=== PATIENT | female | born 1980 | race Caucasian/White ===

== ENCOUNTER 2021-11-03 13:20 | Inpatient (IN) ==
[2021-11-03] MEDS ORDERED: IOPAMIDOL 100 ML BOTTLE IV ONE (13:21)
[2021-11-03 13:43] LABS: POC Calcium, Ionized 1.06 (1.16-1.32); POC Creatinine 0.6 (0.6-1.2); POC Potassium 3.5 (3.3-5.1)
[2021-11-03] MEDS ORDERED: HYDROmorphone 1 MG/ML SYRINGE IV ONE ×2 (14:10→16:00)
[2021-11-03] MEDS ORDERED: 0.9 % SODIUM CHLORIDE 1,000 ML IV ONE ×2 (14:14→17:21)
[2021-11-03 14:50] LABS: Basophils # (Auto) 0.03 K/mcL (0.00-0.30); Basophils % (Auto) 0.4 % (0.0-2.0); Eosinophils # (Auto) 0.03 K/mcL (0.00-0.70); Eosinophils % (Auto) 0.4 % (0.0-7.0); Hematocrit 43.3 % (34.1-44.9); Hemoglobin 14.7 g/dL (11.2-15.7); Lymphocytes # (Auto) 1.62 K/mcL (1.50-4.80); Lymphocytes % (Auto) 24.1 % (15.5-49.0); Mean Cell Volume 95.2 fL (80.0-100.0); Mean Corpuscular HGB Conc 33.9 g/dL (31.0-36.0); Mean Platelet Volume 10.9 fL (7.4-10.4); Monocytes # (Auto) 0.66 K/mcL (0.10-0.90); Monocytes % (Auto) 9.8 % (1.0-12.0); Platelet Count 248 K/mcL (140-440); RBC 4.55 M/mcL (3.59-5.38); Red Cell Distribution Width 13.1 % (11.5-14.5); WBC 6.7 K/mcL (4.5-11.0)
[2021-11-03 15:11] LABS: ALT/SGPT 144 U/L (<40); AST/SGOT 231 U/L (<32); Albumin 4.2 gm/dL (3.2-5.2); Alkaline Phosphatase 157 U/L (39-117); Amylase 155 U/L (28-100); Bilirubin,Direct 0.4 mg/dL (<0.3); Globulin 2.7 gm/dL (2.2-3.7)
--- NOTE | 2021-11-03 15:18 | Cat Scan Report ---
CLINICAL INFORMATION: Abdominal pain COMPARISON: None. TECHNIQUE: Following enteric contrast, 80 cc of Isovue-370 were injected intravenously, and 60 seconds later, 0.625 mm helical slices were obtained from the mid heart through the subtrochanteric regions. Following reconstruction, 2.5 mm sagittal, coronal and axial reformatted images were processed and reviewed at bone, lung and soft tissue windows. Five minutes later, 0.625 mm helical slices were obtained from the mid heart through the kidneys and viewed at soft tissue windows.The exam was performed using radiation dose optimization techniques including, but not limited to, automated exposure control, adjustment of the mA and/or kV according to patient size and use of iterative reconstruction technique. FINDINGS: The lung bases are clear. No effusions. The visualized heart is grossly normal. Abdominal images show mild hepatomegaly with diffuse fatty change within the liver. No focal hepatic lesions. The gallbladder and bile ducts are normal. The pancreas is mildly enlarged with inhomogeneous attenuation and moderate fluid in the peripancreatic fat planes compatible with acute interstitial pancreatitis. There is no necrosis, abscess stone or other complication. Both kidneys, adrenal glands, spleen and aorta, including aortic branches are normal in size, configuration and attenuation without focal lesion. Pelvic images show normal urinary bladder. Anteflexed uterus is normal in size: 7.5 x 3.5 cm. Both lobes are normal. Scattered sigmoid diverticuli noted. No evidence of diverticulitis. The remaining colon, inferior pericecal appendix, small bowel and stomach are normal. Bone windows show no osseous abnormality. IMPRESSION: Acute interstitial pancreatitis. No necrosis or other complication. Mild hepatomegaly with diffuse fatty change within the liver. Please correlate with LFTs Interpreted and Authenticated by: Feliberto Godoy 11/03/21
[2021-11-03 15:29] LABS: Appearance,Urine Clear (Clear); Bilirubin,Urine Negative (Negative); Color,Urine Yellow; Culture Indicated,Urine No; Glucose,Urine (UA) Negative (Negative); Ketones,Urine Negative (Negative); Leukocyte Esterase,Urine Negative /uL (Negative); Mucus,Urine MOD /hpf; Nitrate,Urine Negative (Negative); Protein,Urine Negative (Negative); Specific Gravity,Urine >= 1.030 (1.000-1.035); Urine Blood Negative ery/mcL (Negative); Urine Hyaline Cast 70 /lph (0-2); Urine RBC 0 /hpf (0-3); Urine Squamous Epithelial Cell < 1 /hpf (0-4); Urine WBC 0 /hpf (0-4); Urobilinogen,Urine Normal
--- NOTE | 2021-11-03 15:47 | Emergency Department Note ---
Abdominal Pain HPI General Chief Complaint: Abdominal Pain Stated Complaint: abd. pain Time Seen by Provider: 11/03/21 14:09 Source: patient Mode of arrival: ambulatory History of Present Illness HPI Narrative: 41-year-old female patient presents with acute onset of abdominal pain x2 hours with some nausea, but no vomiting. She was at work at the time. It is mostly located to the left upper quadrant and radiates to the left back. It does not radiate to the groin. She denies dysuria or hematuria. Denies abnormal stools or melena or hematochezia. She has no history of diverticulitis. Previous abdominal surgeries include a bilateral tubal ligation and section. Patient does not have a history of pancreatitis. She does drink 3-4 beers per day. No illicit drug use. Smokes 4 to 6 cigarettes/day. Last alcoholic pancho erage was last night. She endorses a history of mild alcohol withdrawal. Related Data Home Medications Medication Instructions Recorded Confirmed ascorbic acid (vitamin C) 500 mg 500 mg PO QDAY 11/03/21 11/03/21 tablet cetirizine 10 mg tablet (All Day 10 mg PO QDAY 11/03/21 11/03/21 Allergy (cetirizine)) guaifenesin 600 mg tablet, 600 mg PO QDAY 11/03/21 11/03/21 extended release 12 hr (Mucinex) mecobalamin (vitamin B12) 1,000 1,000 mcg PO QDAY 11/03/21 11/03/21 mcg chewable tablet omeprazole 20 mg tablet,delayed 20 mg PO QDAY 11/03/21 11/03/21 release Allergies Allergy/AdvReac Type Severity Reaction Status Date / Time No Known Drug Allergies Allergy Unverified 11/03/21 13:23 Review of Systems ROS ROS Narrative: Narrative: All systems ED: reviewed and negative except as stated. [facility] Narrative Patient History Narrative: Narrative: Medical/Surgical/Family History All Active Problems (Updated 11/03/21 @ 17:22 by Samia Bowen PA-C) Acute pancreatitis (Acute) Social History Smoking Status: Current every day smoker Exam Narrative Narrative: Nondistended general: AOx3, curled up in the position, nontoxic appearing. Pleasant and conversant. HEENT: PERRL, EOMI, normocephalic. Moist mucous membranes. Normal facies and normal dentition. Respiratory: Lungs clear to auscultation bilaterally. No respiratory distress. Unlabored breathing. Heart: Regular rate and rhythm, no murmurs/clicks/rubs. Abdomen: Left upper quadrant tenderness,, negative rebound Goddard sign or McBurney sign. No organomegaly. Extremities: Warm and well perfused. No edema. DP 2+ bilaterally. No venous stasis. Neuro: No focal deficits. Cranial nerves II-XII grossly normal. Skin: Warm dry, no rashes or lesions, no cyanosis. Psych: Normal mood and affect Heme/Lymph: No abnormal bruising Course Course Course Narrative: 41-year-old female presents for cute onsetLeft upper quadrant pain Reevaluation(s) Reevaluation #1: Obtain basic labs, lipase and amylase Establish IV and give IV analgesics and fluids Obtain CT of the abdomen pelvis with and without contrast to rule out pancreatitis, stone, colitis, other Reevaluation #2: LFTs are significantly elevated amylase and lipase both elevated. CT scan shows evidence of interstitial pancreatitis. The patient is received 2 doses of 1 mg of IV Dilaudid continues to be significantly painful. We will hang another liter of fluid and admit for pain control. Have reached out to hospitalist for admission and waiting callback. Vital Signs Vital signs: Vital Signs Temperature 97.8 F 11/03/21 13:21 Pulse Rate 51 L 11/03/21 13:21 Respiratory Rate 16 11/03/21 13:21 Blood Pressure 177/96 11/03/21 13:21 Pulse Oximetry (%) 98 11/03/21 13:21 Oxygen Delivery Method 11/03/21 13:21 Temperature 97.8 F 11/03/21 13:21 Pulse Rate 80 11/03/21 17:22 Respiratory Rate 16 11/03/21 13:21 Blood Pressure 172/105 11/03/21 16:16 Pulse Oximetry (%) 97 11/03/21 17:22 Oxygen Delivery Method 11/03/21 13:21 [facility] MDM Narrative Medical decision making narrative: Acute pancreatitis I called the hospitalist for admission. Plan will be for admit for pain control and IV fluids. Lab Data Result diagrams: 11/03/21 13:35 Labs: Lab Results 11/03/21 11/03/21 11/03/21 Range/Units 13:35 13:35 13:38 WBC 6.7 (4.5-11.0) K/mcL RBC 4.55 (3.59-5.38) M/mcL Hgb 14.7 (11.2-15.7) g/dL Hct 43.3 (34.1-44.9) % POC Hct 46.0 (36-48) MCV 95.2 (80.0-100.0) fL MCH 32.3 (26.0-34.0) pg MCHC 33.9 (31.0-36.0) g/dL RDW 13.1 (11.5-14.5) % Plt Count 248 (140-440) K/mcL MPV 10.9 H (7.4-10.4) fL Immature Gran % (Auto) 0.3 (0.0-0.5) % Neut % (Auto) 65.0 (38.0-78.0) % Lymph % (Auto) 24.1 (15.5-49.0) % [place] % (Auto) 9.8 (1.0-12.0) % Eos % (Auto) 0.4 (0.0-7.0) % Baso % (Auto) 0.4 (0.0-2.0) % Lymph # (Auto) 1.62 (1.50-4.80) K/mcL [place] # (Auto) 0.66 (0.10-0.90) K/mcL Eos # (Auto) 0.03 (0.00-0.70) K/mcL Baso # (Auto) 0.03 (0.00-0.30) K/mcL Immature Gran # 0.02 (0.00-0.05) K/mcl Absolute Neutrophils 4.36 (1.80-8.00) K/mcL POC Sodium 134 (133-145) POC Potassium 3.5 (3.3-5.1) POC Chloride 96 (96-108) POC Total CO2 27.0 (22-30) POC BUN 10 (6-20) POC Creatinine 0.6 (0.6-1.2) POC Glucose 160 H (70-105) POC WB Ioniz Calcium 1.06 L (1.16-1.32) Total Bilirubin 1.0 (0.1-1.0) mg/dL Direct Bilirubin 0.4 H (<0.3) mg/dL AST 231 H (<32) U/L ALT 144 H (<40) U/L Alkaline Phosphatase 157 H (39-117) U/L Total Protein 6.9 (5.9-8.4) gm/dL Albumin 4.2 (3.2-5.2) gm/dL Globulin 2.7 (2.2-3.7) gm/dL Amylase 155 H (28-100) U/L Lipase 596 H (7-60) U/L Urine Color Urine Appearance (Clear) Urine pH (5.0-9.0) Ur Specific [place] (1.000-1.035) Urine Protein (Negative) mg/dL Urine Glucose (UA) (Negative) mg/dL Urine Ketones (Negative) mg/dL Urine Occult Blood (Negative) elsa/mcL Urine Nitrate (Negative) Urine Bilirubin (Negative) mg/dL Urine Urobilinogen mg/dL Ur Leukocyte Esterase (Negative) /uL Urine RBC (0-3) /hpf Urine WBC (0-4) /hpf Ur Squamous Epith Cells (0-4) /hpf Urine Bacteria (0) /hpf Hyaline Casts (0-2) /lph Urine Mucus (None) /hpf Ur Culture Indicated? 11/03/21 Range/Units 13:38 WBC (4.5-11.0) K/mcL RBC (3.59-5.38) M/mcL Hgb (11.2-15.7) g/dL Hct (34.1-44.9) % POC Hct (36-48) MCV (80.0-100.0) fL MCH (26.0-34.0) pg MCHC (31.0-36.0) g/dL RDW (11.5-14.5) % Plt Count (140-440) K/mcL MPV (7.4-10.4) fL Immature Gran % (Auto) (0.0-0.5) % Neut % (Auto) (38.0-78.0) % Lymph % (Auto) (15.5-49.0) % [place] % (Auto) (1.0-12.0) % Eos % (Auto) (0.0-7.0) % Baso % (Auto) (0.0-2.0) % Lymph # (Auto) (1.50-4.80) K/mcL [place] # (Auto) (0.10-0.90) K/mcL Eos # (Auto) (0.00-0.70) K/mcL Baso # (Auto) (0.00-0.30) K/mcL Immature Gran # (0.00-0.05) K/mcl Absolute Neutrophils (1.80-8.00) K/mcL POC Sodium (133-145) POC Potassium (3.3-5.1) POC Chloride (96-108) POC Total CO2 (22-30) POC BUN (6-20) POC Creatinine (0.6-1.2) POC Glucose (70-105) POC WB Ioniz Calcium (1.16-1.32) Total Bilirubin (0.1-1.0) mg/dL Direct Bilirubin (<0.3) mg/dL AST (<32) U/L ALT (<40) U/L Alkaline Phosphatase (39-117) U/L Total Protein (5.9-8.4) gm/dL Albumin (3.2-5.2) gm/dL Globulin (2.2-3.7) gm/dL Amylase (28-100) U/L Lipase (7-60) U/L Urine Color Yellow Urine Appearance Clear (Clear) Urine pH 5.0 (5.0-9.0) Ur Specific [place] >= 1.030 (1.000-1.035) Urine Protein Negative (Negative) mg/dL Urine Glucose (UA) Negative (Negative) mg/dL Urine Ketones Negative (Negative) mg/dL Urine Occult Blood Negative (Negative) elsa/mcL Urine Nitrate Negative (Negative) Urine Bilirubin Negative (Negative) mg/dL Urine Urobilinogen Normal mg/dL Ur Leukocyte Esterase Negative (Negative) /uL Urine RBC 0 (0-3) /hpf Urine WBC 0 (0-4) /hpf Ur Squamous Epith Cells < 1 (0-4) /hpf Urine Bacteria None (0) /hpf Hyaline Casts 70 H (0-2) /lph Urine Mucus Mod A (None) /hpf Ur Culture Indicated? No ED POC Tests ED POC Tests: HCG POC Results Negative Discharge Plan Patient/Caregiver Discharge Instructions Pt seen by [employer]/PA only: Yes Clinical Impression: Acute pancreatitis Instructions: Pancreatitis (ED) Patient Disposition: Xfer As Inpt ([facility]) Prescriptions: No Action cetirizine [All Day Allergy (cetirizine)] 10 mg Tablet 10 mg PO QDAY ascorbic acid (vitamin C) 500 mg Tablet 500 mg PO QDAY omeprazole 20 mg Tablet,Delayed Release (Dr/Ec) 20 mg PO QDAY guaifenesin [Mucinex] 600 mg Tablet Extended Release 12hr 600 mg PO QDAY mecobalamin (vitamin B12) 1,000 mcg Tablet,Chewable 1,000 mcg PO QDAY
--- OUTSIDE RECORDS SUMMARY | 2021-11-03 18:03 | External Medical Summary ---
:1980 Author Care Team Providers Name Role Phone Dental Only Primary Care Provider Unavailable Allergies None recorded. Medications Name Status Start Date Stop Date cephalexin 500 mg capsule Active Not av ailable TAKE ONE CAPSULE BY MOUTH TWICE DAILY FOR 7 DAYS Problems None recorded. Procedures None recorded. Results Lab Results None recorded. Past Encounters 01/20/2021 Ajith Castañeda, DDS: [address] [place] [address], Ph. 01/15/2021 Toothache Varun Treviño, DDS: [address] [place] [address], Ph. Social History Tobacco Smoking Status Heavy Tobacco Smoker (1/2 pack per da y) Vaccine List None recorded. Plan of Care Reminders Provider Appointments None recorded. Lab None recorded. Referral None recorded. Procedures None recorded. Surgeries None recorded. Imaging None recorded. Vitals 01/20/2021 02:45PM Extraction Blood Pressure 114/82 mm[Hg] 01/15/2021 02:15PM Dental Exam/Limited Blood Pressure 128/83 mm[Hg]
[2021-11-03] MEDS ORDERED: ONDANSETRON 4 MG/2 ML VIAL IV PRN (18:19)
[2021-11-03] MEDS ORDERED: ACETAMINOPHEN 325 MG TABLET PO PRN (18:19)
[2021-11-03] MEDS ORDERED: cloNIDine HCL 0.1 MG TABLET PO PRN (18:25)
--- NOTE | 2021-11-03 18:30 | Internal Med History&Physical ---
HPI History of Present Illness Patient information: Note initiated : 11/03/21 at 6:29 pm Service Date, if different from initiated Date: [] Patient: Vee Blancas a 41 y/o F admitted on 11/03/21 for abd. pain. Chief Complaint: [Abdominal pain] History of present illness: Ms. Blancas is a 41 year old F with a history of alcohol use who presents the ED with abrupt onset of abdominal pain this afternoon. Patient was at work when she had onset of left upper abdominal pain which radiated to the back. It tended to wax and wane. Eventually someone from work brought her to the hospital. She had some associated indigestion, felt hot and sweaty but did not have a fever. She had no associated nausea or vomiting. She had little bit of shortness of breath, but that is chronic which she attributes to her cigarette smoking. She has a chronic cough which is unchanged. She reports mild similar symptoms in the past once or twice. No history of biliary disease, she still has her gallbladder. She drinks about 6 x 16 ounce beers on week nights when working, tends to drink throughout the day when she is not working. In the emergency department, evaluation revealed elevated lipase, elevated transaminases and alkaline phosphatase, CT imaging consistent with pancreatitis. In spite of several doses of pain medications, her pain was difficult to control in the ED and she is being admitted for further treatment of pancreatitis. Pertinent family history: No family history of pancreatitis Pertinent social history: Alcohol consumption as above, smokes about 1 and half packs per day Review of Systems All systems: reviewed and no additional remarkable complaints except as stated PFSH PFSH All Active Problems (Updated 11/03/21 @ 20:19 by Latricia Kohler MD) Allergic rhinitis (Acute) Gastroesophageal reflux disease (Acute) Acute pancreatitis (Acute) Medical History (Updated 11/03/21 @ 20:19 by Latricia Kohler MD) Allergic rhinitis Gastroesophageal reflux disease Social History smoking status: Current every day smoker MEDS/ALLERGIES Home Medications and Allergies Home Medications Medication Instructions Recorded Confirmed Type ascorbic acid (vitamin C) 500 mg 500 mg PO QDAY 11/03/21 11/03/21 History tablet cetirizine 10 mg tablet (All Day 10 mg PO QDAY 11/03/21 11/03/21 History Allergy (cetirizine)) guaifenesin 600 mg tablet, 600 mg PO QDAY 11/03/21 11/03/21 History extended release 12 hr (Mucinex) mecobalamin (vitamin B12) 1,000 1,000 mcg PO QDAY 11/03/21 11/03/21 History mcg chewable tablet omeprazole 20 mg tablet,delayed 20 mg PO QDAY 11/03/21 11/03/21 History release Allergies Allergy/AdvReac Type Severity Reaction Status Date / Time No Known Drug Allergies Allergy Unverified 11/03/21 13:23 EXAM Constitutional Vitals: Temp Pulse Resp BP Pulse Ox O2 Del Method 97.8 F 60 16 155/88 93 11/03/21 13:21 11/03/21 17:46 11/03/21 13:21 11/03/21 17:46 11/03/21 17:46 11/03/21 13:21 GENERAL: Alert, oriented, in mild distress. Cooperative, appears stated age. HEENT: Atraumatic. Pupils equal at 3 mm, conjunctiva clear, no scleral icterus. Hearing grossly intact. Oropharynx with moist mucous membranes, no lip or gum lesions, no pharyngeal erythema or exudate. Tongue midline, palate rises symmetrically. NECK: Supple without meningismus, no thyromegaly RESPIRATORY: Breath sounds clear bilaterally without wheezes or rhonchi. Respiratory effort is unlabored. CARDIOVASCULAR: Regular rate and rhythm, no murmur gallop or rub. No peripheral edema. Carotid pulses 2+ without bruit. GI: Abdomen soft, mild to moderate epigastric and left upper quadrant tenderness without guarding or rebound. Bowel sounds are present. MUSCULOSKELETAL: No joint erythema or swelling, normal range of motion in all extremities. SKIN: Intact, warm, dry. Skin turgor normal. NEUROLOGIC: Cranial nerves II through XII grossly intact. Muscle mass normal. Strength 5/5 in the upper and lower extremities. Sensation intact to light touch bilaterally. PSYCHIATRIC: Alert, oriented x3, mood and affect congruent to situation, normal insight. DATA Data Completed and Pending Labs: Labs from last 24 hours 11/03/21 11/03/21 11/03/21 13:38 13:38 13:35 WBC RBC Hgb Hct POC Hct 46.0 MCV MCH MCHC RDW Plt Count MPV Immature Gran % (Auto) Neut % (Auto) Lymph % (Auto) [place] % (Auto) Eos % (Auto) Baso % (Auto) Lymph # (Auto) [place] # (Auto) Eos # (Auto) Baso # (Auto) Immature Gran # Absolute Neutrophils POC Sodium 134 POC Potassium 3.5 POC Chloride 96 POC Total CO2 27.0 POC BUN 10 POC Creatinine 0.6 POC Glucose 160 H POC WB Ioniz Calcium 1.06 L Total Bilirubin 1.0 Direct Bilirubin 0.4 H AST 231 H ALT 144 H Alkaline Phosphatase 157 H Total Protein 6.9 Albumin 4.2 Globulin 2.7 Amylase 155 H Lipase 596 H Urine Color Yellow Urine Appearance Clear Urine pH 5.0 Ur Specific [place] >= 1.030 Urine Protein Negative Urine Glucose (UA) Negative Urine Ketones Negative Urine Occult Blood Negative Urine Nitrate Negative Urine Bilirubin Negative Urine Urobilinogen Normal Ur Leukocyte Esterase Negative Urine RBC 0 Urine WBC 0 Ur Squamous Epith Cells < 1 Urine Bacteria None Hyaline Casts 70 H Urine Mucus Mod A Ur Culture Indicated? No 11/03/21 13:35 WBC 6.7 RBC 4.55 Hgb 14.7 Hct 43.3 POC Hct MCV 95.2 MCH 32.3 MCHC 33.9 RDW 13.1 Plt Count 248 MPV 10.9 H Immature Gran % (Auto) 0.3 Neut % (Auto) 65.0 Lymph % (Auto) 24.1 [place] % (Auto) 9.8 Eos % (Auto) 0.4 Baso % (Auto) 0.4 Lymph # (Auto) 1.62 [place] # (Auto) 0.66 Eos # (Auto) 0.03 Baso # (Auto) 0.03 Immature Gran # 0.02 Absolute Neutrophils 4.36 POC Sodium POC Potassium POC Chloride POC Total CO2 POC BUN POC Creatinine POC Glucose POC WB Ioniz Calcium Total Bilirubin Direct Bilirubin AST ALT Alkaline Phosphatase Total Protein Albumin Globulin Amylase Lipase Urine Color Urine Appearance Urine pH Ur Specific [place] Urine Protein Urine Glucose (UA) Urine Ketones Urine Occult Blood Urine Nitrate Urine Bilirubin Urine Urobilinogen Ur Leukocyte Esterase Urine RBC Urine WBC Ur Squamous Epith Cells Urine Bacteria Hyaline Casts Urine Mucus Ur Culture Indicated? Impressions Impressions: CT abdomen/pelvis-personally reviewed IMPRESSION: Acute interstitial pancreatitis. No necrosis or other complication. Mild hepatomegaly with diffuse fatty change within the liver. Please correlate with LFTs A/P Narrative A/P Narrative: 41-year-old female with history of alcohol use, fatty liver on imaging presents with abdominal pain, found to have acute pancreatitis. Acute pancreatitis -Etiology likely alcohol related -Abnormal LFTs and alkaline phosphatase with normal total bilirubin, but no biliary abnormalities on CT imaging to suggest gallstone pancreatitis -With fatty liver, hypertriglyceridemia also possible Alcohol abuse -History of alcohol withdrawal in the past with described mild to moderate symptoms -No history of seizures or hallucinosis Abnormal liver enzymes -Elevated transaminases and alkaline phosphatase -Possibly related to alcohol use (less likely alcoholic hepatitis) -Underlying fatty liver, which could also be etiology -Normal bile ducts on CT imaging, will further evaluate for stone disease with ultrasound Tobacco use -Smokes 1.5 PPD -Nicotine patch while here GERD -Acid suppression Plan: -Inpatient admission -IV fluids, NS 200 mL/HR -N.p.o. except for sips and chips -Pain control, nausea control -Check triglycerides in morning -Follow liver enzymes -Limited abdominal ultrasound to evaluate for cholelithiasis -[facility] protocol -Nicotine patch Time Spent With Patient Time: Total time spent is greater than 50% in coordination of care (as documented) at patient's floor/unit and/or counseling patient:
[2021-11-03] MEDS: 0.9 % SODIUM CHLORIDE 10 ML SYRINGE IV SCH ×2 (19:00→21:58)
[2021-11-03] MEDS: NICOTINE 21 MG PATCH TOPICAL SCH (19:02)
[2021-11-03] MEDS: HYDROmorphone 1 MG/ML SYRINGE IV PRN ×2 (19:04→20:58)
[2021-11-03] MEDS: SENNOSIDES 1 TABLET PO SCH (19:04)
[2021-11-03] MEDS: 0.9 % SODIUM CHLORIDE 1,000 ML IV SCH (19:04)
[2021-11-03] MEDS: FAMOTIDINE/PF 20 MG/2 ML VIAL IV SCH (19:04)
[2021-11-03] MEDS: KETOROLAC 30 MG/ML VIAL IV PRN (19:05)
[2021-11-03] MEDS: LORazepam 2 MG/ML VIAL IV PRN (20:02)
[2021-11-04] MEDS: 0.9 % SODIUM CHLORIDE 1,000 ML IV SCH ×5 (00:37→22:15)
[2021-11-04] MEDS: KETOROLAC 30 MG/ML VIAL IV PRN ×3 (00:37→17:09)
[2021-11-04] MEDS: HYDROmorphone 1 MG/ML SYRINGE IV PRN ×5 (00:38→12:52)
[2021-11-04] MEDS: 0.9 % SODIUM CHLORIDE 10 ML SYRINGE IV SCH ×3 (06:10→21:30)
[2021-11-04 06:28] LABS: Basophils # (Auto) 0.02 K/mcL (0.00-0.30); Basophils % (Auto) 0.2 % (0.0-2.0); Eosinophils % (Auto) 1.2 % (0.0-7.0); Hematocrit 38.6 % (34.1-44.9); Hemoglobin 13.2 g/dL (11.2-15.7); Lymphocytes # (Auto) 1.57 K/mcL (1.50-4.80); Lymphocytes % (Auto) 19.3 % (15.5-49.0); Mean Cell Volume 94.4 fL (80.0-100.0); Mean Corpuscular HGB Conc 34.2 g/dL (31.0-36.0); Mean Platelet Volume 10.6 fL (7.4-10.4); Monocytes # (Auto) 0.66 K/mcL (0.10-0.90); Monocytes % (Auto) 8.1 % (1.0-12.0); Neutrophils % (Auto) 70.7 % (38.0-78.0); Platelet Count 211 K/mcL (140-440); RBC 4.09 M/mcL (3.59-5.38); WBC 8.1 K/mcL (4.5-11.0)
[2021-11-04] MEDS: LORazepam 2 MG/ML VIAL IV PRN ×3 (06:43→17:09)
[2021-11-04 07:05] LABS: ALT/SGPT 80 U/L (<40); AST/SGOT 90 U/L (<32); Albumin 3.1 gm/dL (3.2-5.2); Albumin/Globulin Ratio 1.3 (1.0-2.3); Alkaline Phosphatase 96 U/L (39-117); Bilirubin,Direct 0.5 mg/dL (<0.3); Bilirubin,Total 1.3 mg/dL (0.1-1.0); Blood Urea Nitrogen 4 mg/dL (6-20); Calcium 7.4 mg/dL (8.6-10.4); Carbon Dioxide 23 mmol/L (22-30); Chloride 104 mmol/L (96-108); Globulin 2.3 gm/dL (2.2-3.7); Glomerular Filtration Rate 129; Glucose 98 mg/dL (70-105); Lactate Dehydrogenase 165 U/L (135-225); Triglycerides 110 mg/dL (<150); Uric Acid 5.5 mg/dL (2.5-8.0)
[2021-11-04] MEDS: FAMOTIDINE/PF 20 MG/2 ML VIAL IV SCH ×2 (08:07→21:30)
[2021-11-04] MEDS: THIAMINE 100 MG in 0.9 % SODIUM CHLORIDE 50 ML IV SCH (08:07)
[2021-11-04] MEDS: NICOTINE 21 MG PATCH TOPICAL SCH (09:34)
--- NOTE | 2021-11-04 11:04 | Internal Med Progress Note ---
SUBJECTIVE Subjective Patient information: Note initiated : 11/04/21 at 11:01 am Service Date, if different from initiated Date: [] Patient: Vee Blancas a 41 y/o F admitted on 11/03/21 for abd pain. Chief Complaint: [] Interval history: Ms. Blancas is a 41 year old F with a history of alcohol use who presents the ED with abrupt onset of abdominal pain this afternoon. Patient was at work when she had onset of left upper abdominal pain which radiated to the back. It tended to wax and wane. Eventually someone from [facility] She had some associated indigestion, felt hot and sweaty but did not have a fever. She had no associated nausea or vomiting. She had little bit of shortness of breath, but that is chronic which she attributes to her cigarette smoking. She has a chronic cough which is unchanged. She reports mild similar symptoms in the past once or twice. No history of biliary disease, she still has her gallbladder. She drinks about 6 x 16 ounce beers on week nights when working, tends to drink throughout the day when she is not working. In the emergency department, evaluation revealed elevated lipase, elevated transaminases and alkaline phosphatase, CT imaging consistent with pancreatitis. In spite of several doses of pain medications, her pain was difficult to control in the ED and she is being admitted for further treatment of pancreatitis. 11/04: Pain a little improved, tolerating ice chips. Feels like she could try some clears today. Wanting to have a cigarette, confirmed that she is not allowed to go out to smoke while in the hospital. Reiterated that given her pancreatitis and evidence of fatty liver, it would be in her best interest to abstain from further alcohol. Also counseled on tobacco sensation, acknowledging it would be difficult to accomplish both at the same time. Constitutional Vitals: Vital Signs Temp Pulse Resp BP Pulse Ox O2 Del Method O2 Flow Rate 97 F 74 20 155/100 94 0 11/04/21 07:41 11/04/21 04:04 11/04/21 07:41 11/04/21 07:41 11/04/21 07:41 11/04/21 08:19 11/04/21 00:31 Period Temp Pulse Resp BP Sys/Hein Pulse Ox O2 Del Method O2 Flow Rate Last 24 Hr 97 F-98.1 F 49-87 - 137-186/88-114 92-99 Room Air-Room Air 0-0 Intake and Output 11/03/21 11/04/21 11/04/21 21:59 05:59 13:59 Intake Total 1000 2049 91 Output Total 100 350 250 Balance 900 1700 -159 Weight 111 lb 11.2 oz Intake & Output: Intake & Output 11/03/21 11/04/21 11/04/21 21:59 05:59 13:59 Intake Total 1000 2049 91 Output Total 100 350 250 Balance 900 1700 -159 Weight 111 lb 11.2 oz Intake: IV 1000 2000 51 Sodium Chloride 0.9% 1,000 ml @ 1000 2000 200 mls/hr IV .Q5H [facility] Rx#: [id number] Vitamin B1 100 mg In Sodium 51 Chloride 0.9% 50 ml @ 50 mls/hr IV DAILY [facility] Rx#:[id number] Oral 50 40 Output: Void Amount 100 350 250 Other: Urine Appearance Clear Clear Urine Color Bright Yellow Bright Yellow Urine Odor Normal # Voids 1 1 # Bowel Movements 0 GENERAL: Sitting up in bed, mildly ill-appearing RESPIRATORY: Scattered rhonchi, improves after cough, unlabored respirations CARDIOVASCULAR: Regular rate and rhythm ABDOMEN: Soft, mild to moderate epigastric and left upper quadrant tenderness without guarding or rebound. Diminished bowel sounds. EXTREMITIES: No edema NEURO: Alert, oriented x4, no tremor OBJ DATA Labs CBC & Chem 7: 11/04/21 05:47 11/04/21 05:47 Labs: Abnormal Lab Results 11/04/21 11/04/21 11/03/21 05:47 05:47 13:38 MPV 10.6 H BUN 4 L Creatinine 0.4 L POC Glucose Calcium 7.4 L POC WB Ioniz Calcium Phosphorus 2.0 L Total Bilirubin 1.3 H Direct Bilirubin 0.5 H GGT 481 H AST 90 H ALT 80 H Alkaline Phosphatase Total Protein 5.4 L Albumin 3.1 L Amylase Lipase 590 H Hyaline Casts 70 H Urine Mucus Mod A 11/03/21 11/03/21 11/03/21 13:38 13:35 13:35 MPV 10.9 H BUN Creatinine POC Glucose 160 H Calcium POC WB Ioniz Calcium 1.06 L Phosphorus Total Bilirubin Direct Bilirubin 0.4 H GGT AST 231 H ALT 144 H Alkaline Phosphatase 157 H Total Protein Albumin Amylase 155 H Lipase 596 H Hyaline Casts Urine Mucus Meds: Medications Acetaminophen (Acetaminophen 325 Mg Tablet) 650 mg PO Q6HP PRN; Protocol PRN Reason: Per Pain Protocol/Fever > 101 Clonidine HCl (Clonidine Hcl 0.1 Mg Tablet) 0.1 mg PO Q4HP PRN PRN Reason: ALC Famotidine (Famotidine/Pf 20 Mg/2 Ml Vial) 20 mg IV Q12 [facility] Last Admin: 11/04/21 08:07 Dose: 20 mg Hydromorphone HCl (Hydromorphone 1 Mg/Ml Syringe) 1 mg IV Q2HP PRN; Protocol PRN Reason: Per Pain Protocol Last Admin: 11/04/21 10:04 Dose: 1 mg Thiamine HCl 100 mg/ Sodium (Chloride) 51 mls @ 50 mls/hr IV DAILY [facility] Last Infusion: 11/04/21 09:27 Dose: Infused Sodium Chloride (Sodium Chloride 0.9%) 1,000 mls @ 125 mls/hr IV .Q8H [facility] Ketorolac Tromethamine (Ketorolac 30 Mg/Ml Vial) 30 mg IV Q6HP PRN; Protocol PRN Reason: Per Pain Protocol Stop: 11/05/21 17:41 Last Admin: 11/04/21 06:09 Dose: 30 mg Lorazepam (Lorazepam 2 Mg/Ml Vial) 0 mg IV Q4HP PRN; Protocol PRN Reason: Alcohol Withdrawal/Assess CIWA Last Admin: 11/04/21 06:43 Dose: 2 mg Nicotine (Nicotine 21 Mg Patch) 21 mg TOPICAL DAILY@1000 [facility] Last Admin: 11/04/21 09:34 Dose: 21 mg Ondansetron HCl (Ondansetron 4 Mg/2 Ml Vial) 4 mg IV Q6HP PRN PRN Reason: Nausea And Vomiting Oxycodone HCl (Oxycodone Hcl 5 Mg Tablet) 5 mg PO Q4HP PRN; Protocol PRN Reason: Per Pain Protocol Senna (Sennosides 1 Tablet) 2 tab PO HS [facility] Last Admin: 11/03/21 19:04 Dose: Not Given Sodium Chloride (0.9 % Sodium Chloride 10 Ml Syringe) 10 ml IV Q8 [facility] Last Admin: 11/04/21 06:10 Dose: Not Given A/P Narrative A/P Narrative: 41-year-old female with history of alcohol use, fatty liver on imaging presents with abdominal pain, found to have acute pancreatitis. Acute pancreatitis -Etiology likely alcohol related -Abnormal LFTs and alkaline phosphatase with normal total bilirubin, but no biliary abnormalities on CT imaging to suggest gallstone pancreatitis -Right upper quadrant ultrasound to definitively rule out biliary disease pending 11/04 -With fatty liver, hypertriglyceridemia also possible--> triglycerides normal Alcohol abuse -History of alcohol withdrawal in the past with described mild to moderate symptoms -No history of seizures or hallucinosis Abnormal liver enzymes -Elevated transaminases and alkaline phosphatase -Possibly related to alcohol use (less likely alcoholic hepatitis) -Underlying fatty liver, which could also be etiology -Normal bile ducts on CT imaging, will further evaluate for stone disease with ultrasound (pending a.m. 11/04) Tobacco use -Smokes 1.5 PPD -Nicotine patch while here GERD -Acid suppression Plan: -Decrease IV fluids 125 mL an hour -Clear liquid diet -Continue with pain and nausea control -Follow-up limited abdominal ultrasound -Follow liver enzymes -Continue CIWA protocol -Continue nicotine patch Disposition: Anticipate another 2 nights in the hospital Time Spent With Patient Time: Total time spent is greater than 50% in coordination of care (as documented) at patient's floor/unit and/or counseling patient: Total time spent with greater than 50% in coordination of care (as documented) at patient's floor/unit and/or counseling patient:: 35 - 50 minutes QUALITY VTE Deep Vein Thrombosis/Pulmonary Embolism Present on Admission: No
--- NOTE | 2021-11-04 13:01 | Ultrasound Report ---
CLINICAL INFORMATION: Follow-up pancreatitis COMPARISON: Abdomen and pelvic CT from yesterday 04/05/2021 FINDINGS: The pancreas is diffusely enlarged with inhomogeneous elevated echotexture compatible with acute interstitial pancreatitis. Pancreatic duct is normal caliber: 2 mm There is no fluid collection or other complication from pancreatitis. Liver is mildly enlarged with a vertical dimension of 20 cm. A 10 x 5 cm region of elevated echotexture in the yaneth hepatis would be compatible with focal fatty infiltration. No focal hepatic lesions. Gallbladder and bile ducts are normal CBD 6 mm. No free fluid. IMPRESSION: Acute interstitial pancreatitis as seen on CT. No necrosis or other complication. Interpreted and Authenticated by: Feliberto Godoy 11/04/21
[2021-11-04] MEDS ORDERED: POTASSIUM PHOSPHATE 20 MEQ in DEXTROSE 5% IN WATER 250 ML IV ONE (13:30)
--- NOTE | 2021-11-04 13:49 | Internal Med Progress Note ---
SUBJECTIVE Subjective Patient information: Note initiated : 11/04/21 at 1:42 pm Service Date, if different from initiated Date: [] Patient: Vee Blancas a 41 y/o F admitted on 11/03/21 for abd pain. Chief Complaint: [] Interval history: Ms. Blancas is a 41 year old F with a history of alcohol use who presents the ED with abrupt onset of abdominal pain this afternoon. Patient was at work when she had onset of left upper abdominal pain which radiated to the back. It tended to wax and wane. Eventually someone from work brought her to the [facility]. She had some associated indigestion, felt hot and sweaty but did not have a fever. She had no associated nausea or vomiting. She had little bit of shortness of breath, but that is chronic which she attributes to her cigarette smoking. She has a chronic cough which is unchanged. She reports mild similar symptoms in the past once or twice. No history of biliary disease, she still has her gallbladder. She drinks about 6 x 16 ounce beers on week nights when working, tends to drink throughout the day when she is not working. In the emergency department, evaluation revealed elevated lipase, elevated transaminases and alkaline phosphatase, CT imaging consistent with pancreatitis. In spite of several doses of pain medications, her pain was difficult to control in the ED and she is being admitted for further treatment of pancreatitis. 11/04: Pain a little improved, tolerating ice chips. Feels like she could try some clears today. Wanting to have a cigarette, confirmed that she is not allowed to go out to smoke while in the hospital. Reiterated that given her pancreatitis and evidence of fatty liver, it would be in her best interest to abstain from further alcohol. Also counseled on tobacco sensation, acknowledging it would be difficult to accomplish both at the same time. Constitutional Vitals: Vital Signs Temp Pulse Resp BP Pulse Ox O2 Del Method O2 Flow Rate 97 F 74 20 150/97 96 0 11/04/21 11:20 11/04/21 04:04 11/04/21 11:20 11/04/21 11:20 11/04/21 11:20 11/04/21 11:20 11/04/21 00:31 Period Temp Pulse Resp BP Sys/Hein Pulse Ox O2 Del Method O2 Flow Rate Last 24 Hr 97 F-98.1 F 49-87 137-186/88-114 92-99 Room Air-Room Air 0-0 Intake and Output 11/03/21 11/04/21 11/04/21 21:59 05:59 13:59 Intake Total 1000 2049 1091 Output Total 100 350 250 Balance 900 1700 841 Weight 50.666 kg Intake & Output: Intake & Output 11/03/21 11/04/21 11/04/21 21:59 05:59 13:59 Intake Total 1000 2049 1091 Output Total 100 350 250 Balance 900 1700 841 Weight 50.666 kg Intake: IV 1000 2000 1051 Sodium Chloride 0.9% 1,000 ml @ 1000 2000 1000 200 mls/hr IV .Q5H [facility] Rx#: [id number] Vitamin B1 100 mg In Sodium 51 Chloride 0.9% 50 ml @ 50 mls/hr IV DAILY [facility] Rx#:[id number] Oral 50 40 Output: Void Amount 100 350 250 Other: Meal jello Percent of Meal Consumed 100% Urine Appearance Clear Clear Urine Color Bright Yellow Bright Yellow Urine Odor Normal # Voids 1 2 # Bowel Movements 0 Exam: General: Alert, Awake, No acute Distress Eyes/N/T: EOMI, Head/Neck: neck supple, CV: RRR, No murmurs, Pulm: Clear b/l, no wheezing/rhonchi/rales Abd: soft, mild to moderate epigastric and left upper quadrant tenderness without guarding or rebound, +BS x4 Ext: no clubbing/cyanosis/edema Neuro: Alert, no focal deficits, moves all extremities, Skin: warm/dry OBJ DATA Labs CBC & Chem 7: 11/04/21 05:47 11/04/21 05:47 Labs: Abnormal Lab Results 11/04/21 11/04/21 11/03/21 05:47 05:47 13:38 MPV 10.6 H BUN 4 L Creatinine 0.4 L POC Glucose Calcium 7.4 L POC WB Ioniz Calcium Phosphorus 2.0 L Total Bilirubin 1.3 H Direct Bilirubin 0.5 H GGT 481 H AST 90 H ALT 80 H Alkaline Phosphatase Total Protein 5.4 L Albumin 3.1 L Amylase Lipase 590 H Hyaline Casts 70 H Urine Mucus Mod A 11/03/21 11/03/21 11/03/21 13:38 13:35 13:35 MPV 10.9 H BUN Creatinine POC Glucose 160 H Calcium POC WB Ioniz Calcium 1.06 L Phosphorus Total Bilirubin Direct Bilirubin 0.4 H GGT AST 231 H ALT 144 H Alkaline Phosphatase 157 H Total Protein Albumin Amylase 155 H Lipase 596 H Hyaline Casts Urine Mucus Meds: Medications Acetaminophen (Acetaminophen 325 Mg Tablet) 650 mg PO Q6HP PRN; Protocol PRN Reason: Per Pain Protocol/Fever > 101 Clonidine HCl (Clonidine Hcl 0.1 Mg Tablet) 0.1 mg PO Q4HP PRN PRN Reason: [facility] Famotidine (Famotidine/Pf 20 Mg/2 Ml Vial) 20 mg IV Q12 [facility] Last Admin: 11/04/21 08:07 Dose: 20 mg Hydromorphone HCl (Hydromorphone 1 Mg/Ml Syringe) 1 mg IV Q2HP PRN; Protocol PRN Reason: Per Pain Protocol Last Admin: 11/04/21 12:52 Dose: 1 mg Thiamine HCl 100 mg/ Sodium (Chloride) 51 mls @ 50 mls/hr IV DAILY [facility] Last Infusion: 11/04/21 09:27 Dose: Infused Sodium Chloride (Sodium Chloride 0.9%) 1,000 mls @ 125 mls/hr IV .Q8H [facility] Last Admin: 11/04/21 11:57 Dose: 125 mls/hr Potassium Phosphate 20 meq/ (Dextrose) 254.5455 mls @ 127.273 mls/hr IV ONCE ONE Stop: 11/04/21 15:29 Ketorolac Tromethamine (Ketorolac 30 Mg/Ml Vial) 30 mg IV Q6HP PRN; Protocol PRN Reason: Per Pain Protocol Stop: 11/05/21 17:41 Last Admin: 11/04/21 06:09 Dose: 30 mg Lorazepam (Lorazepam 2 Mg/Ml Vial) 0 mg IV Q4HP PRN; Protocol PRN Reason: Alcohol Withdrawal/Assess CIWA Last Admin: 11/04/21 06:43 Dose: 2 mg Nicotine (Nicotine 21 Mg Patch) 21 mg TOPICAL DAILY@1000 [facility] Last Admin: 11/04/21 09:34 Dose: 21 mg Ondansetron HCl (Ondansetron 4 Mg/2 Ml Vial) 4 mg IV Q6HP PRN PRN Reason: Nausea And Vomiting Oxycodone HCl (Oxycodone Hcl 5 Mg Tablet) 5 mg PO Q4HP PRN; Protocol PRN Reason: Per Pain Protocol Senna (Sennosides 1 Tablet) 2 tab PO HS [facility] Last Admin: 11/03/21 19:04 Dose: Not Given Sodium Chloride (0.9 % Sodium Chloride 10 Ml Syringe) 10 ml IV Q8 [facility] Last Admin: 11/04/21 12:45 Dose: Not Given A/P Narrative A/P Narrative: A: *Acute pancreatitis: -Etiology likely alcohol related -Abnormal LFTs/alkaline phosphatase with normal bilirubin, no biliary abnormalities on CT to suggest gallstone pancreatitis -With fatty liver, hypertriglyceridemia also possible--> triglycerides normal *Alcohol abuse: -History of alcohol withdrawal in the past with described mild to moderate symptoms -No history of seizures or hallucinosis *Abnormal liver enzymes: 2/2 Fatty liver from likely alcohol use (less likely alcoholic hepatitis) *Tobacco abuse: *GERD: Plan: -Decrease IV fluids 125 mL an hour -Clear liquid diet -Continue with pain and nausea control -Follow liver enzymes -Continue CIWA protocol, vitamins -Continue nicotine patch, Smoking cessation counseling >3 minutes -ppx: lovenox / home ppi Time Spent With Patient Time: Total time spent is greater than 50% in coordination of care (as documented) at patient's floor/unit and/or counseling patient: QUALITY VTE Deep Vein Thrombosis/Pulmonary Embolism Present on Admission: No
[2021-11-04] MEDS: SENNOSIDES 1 TABLET PO SCH (21:28)
[2021-11-04] MEDS: oxyCODONE HCL 5 MG TABLET PO PRN (21:31)
[2021-11-05] MEDS: oxyCODONE HCL 5 MG TABLET PO PRN ×2 (01:46→07:41)
[2021-11-05] MEDS: 0.9 % SODIUM CHLORIDE 10 ML SYRINGE IV SCH (04:59)
[2021-11-05 06:18] LABS: Basophils # (Auto) 0.02 K/mcL (0.00-0.30); Basophils % (Auto) 0.3 % (0.0-2.0); Eosinophils # (Auto) 0.14 K/mcL (0.00-0.70); Eosinophils % (Auto) 1.9 % (0.0-7.0); Hemoglobin 13.3 g/dL (11.2-15.7); Lymphocytes # (Auto) 1.92 K/mcL (1.50-4.80); Lymphocytes % (Auto) 25.7 % (15.5-49.0); Mean Cell Volume 96.3 fL (80.0-100.0); Mean Corpuscular HGB Conc 34.1 g/dL (31.0-36.0); Mean Platelet Volume 11.2 fL (7.4-10.4); Monocytes # (Auto) 0.72 K/mcL (0.10-0.90); Monocytes % (Auto) 9.7 % (1.0-12.0); Neutrophils % (Auto) 62.1 % (38.0-78.0); Platelet Count 198 K/mcL (140-440); RBC 4.05 M/mcL (3.59-5.38); Red Cell Distribution Width 13.2 % (11.5-14.5); WBC 7.5 K/mcL (4.5-11.0)
[2021-11-05 06:52] LABS: ALT/SGPT 55 U/L (<40); AST/SGOT 49 U/L (<32); Albumin/Globulin Ratio 1.2 (1.0-2.3); Alkaline Phosphatase 102 U/L (39-117); Bilirubin,Direct 0.4 mg/dL (<0.3); Bilirubin,Total 1.1 mg/dL (0.1-1.0); Blood Urea Nitrogen 2 mg/dL (6-20); Calcium 7.7 mg/dL (8.6-10.4); Carbon Dioxide 28 mmol/L (22-30); Chloride 99 mmol/L (96-108); Globulin 2.6 gm/dL (2.2-3.7); Glomerular Filtration Rate 120; Glucose 82 mg/dL (70-105); Lactate Dehydrogenase 185 U/L (135-225); Phosphorous 2.8 mg/dL (2.5-4.5); Triglycerides 134 mg/dL (<150); Uric Acid 4.2 mg/dL (2.5-8.0)
[2021-11-05] MEDS ORDERED: POTASSIUM CHLORIDE 20 MEQ TABLET PO ONE (07:16)
--- NOTE | 2021-11-05 07:17 | Internal Med Progress Note ---
SUBJECTIVE Subjective Patient information: Note initiated : 11/05/21 at 7:15 am Service Date, if different from initiated Date: [] Patient: Vee Blancas a 41 y/o F admitted on 11/03/21 for abd pain. Chief Complaint: [] Interval history: Ms. Blancas is a 41 year old F with a history of alcohol use who presents the ED with abrupt onset of abdominal pain this afternoon. Patient was at work when she had onset of left upper abdominal pain which radiated to the back. It tended to wax and wane. Eventually someone from work brought her to the [facility]. She had some associated indigestion, felt hot and sweaty but did not have a fever. She had no associated nausea or vomiting. She had little bit of shortness of breath, but that is chronic which she attributes to her cigarette smoking. She has a chronic cough which is unchanged. She reports mild similar symptoms in the past once or twice. No history of biliary disease, she still has her gallbladder. She drinks about 6 x 16 ounce beers on week nights when working, tends to drink throughout the day when she is not working. In the emergency department, evaluation revealed elevated lipase, elevated transaminases and alkaline phosphatase, CT imaging consistent with pancreatitis. In spite of several doses of pain medications, her pain was difficult to control in the ED and she is being admitted for further treatment of pancreatitis. 11/04: Pain a little improved, tolerating ice chips. Feels like she could try some clears today. Wanting to have a cigarette, confirmed that she is not allowed to go out to smoke while in the hospital. Reiterated that given her pancreatitis and evidence of fatty liver, it would be in her best interest to abstain from further alcohol. Also counseled on tobacco sensation, acknowledging it would be difficult to accomplish both at the same time. Constitutional Vitals: Vital Signs Temp Pulse Resp BP Pulse Ox O2 Del Method O2 Flow Rate 98.1 F 89 20 131/94 95 0 11/05/21 04:00 11/05/21 04:00 11/05/21 04:00 11/05/21 04:00 11/05/21 04:00 11/05/21 04:00 11/04/21 00:31 Period Temp Pulse Resp BP Sys/Hein Pulse Ox O2 Del Method O2 Flow Rate Last 24 Hr 93 F-98.1 F 86-100 16-20 131-179/84-127 94-97 Room Air-Room Air Intake and Output 11/04/21 11/05/21 11/05/21 21:59 05:59 13:59 Intake Total 1254.5455 880 Output Total 1251 977 Balance 3.5455 -97 Weight 50.859 kg Intake & Output: Intake & Output 11/04/21 11/05/21 11/05/21 21:59 05:59 13:59 Intake Total 1254.5455 880 Output Total 1251 977 Balance 3.5455 -97 Weight 50.859 kg Intake: IV 1254.5455 Sodium Chloride 0.9% 1,000 ml @ 1000 125 mls/hr IV .Q8H [facility] Rx#: [id number] Potassium Phosphate 20 Meq In 254.5455 Dextrose 5% in Water 250 ml @ 127.273 mls/hr IV ONCE ONE Rx#: [id number] Oral 880 Output: Void Amount 1250 975 # of times incontinent of urine 1 2 Other: Urine Appearance Clear Clear Urine Color Bright Yellow Bright Yellow Urine Odor Normal # Voids 1 1 1 # Bowel Movements 1 Exam: General: Alert, Awake, No acute Distress Eyes/N/T: EOMI, Head/Neck: neck supple, CV: RRR, No murmurs, Pulm: Clear b/l, no wheezing/rhonchi/rales Abd: soft, mild to moderate epigastric and left upper quadrant tenderness without guarding or rebound, +BS x4 Ext: no clubbing/cyanosis/edema Neuro: Alert, no focal deficits, moves all extremities, Skin: warm/dry OBJ DATA Labs CBC & Chem 7: 11/05/21 04:58 11/05/21 04:57 Labs: Abnormal Lab Results 11/05/21 11/05/21 11/04/21 04:58 04:57 05:47 MPV 11.2 H Potassium 3.1 L BUN 2 L 4 L Creatinine 0.5 L 0.4 L POC Glucose Calcium 7.7 L 7.4 L POC WB Ioniz Calcium Phosphorus 2.0 L Total Bilirubin 1.1 H 1.3 H Direct Bilirubin 0.4 H 0.5 H GGT 432 H 481 H AST 49 H 90 H ALT 55 H 80 H Alkaline Phosphatase Total Protein 5.6 L 5.4 L Albumin 3.0 L 3.1 L Amylase Lipase 590 H Hyaline Casts Urine Mucus 11/04/21 11/03/21 11/03/21 05:47 13:38 13:38 MPV 10.6 H Potassium BUN Creatinine POC Glucose 160 H Calcium POC WB Ioniz Calcium 1.06 L Phosphorus Total Bilirubin Direct Bilirubin GGT AST ALT Alkaline Phosphatase Total Protein Albumin Amylase Lipase Hyaline Casts 70 H Urine Mucus Mod A 11/03/21 11/03/21 13:35 13:35 MPV 10.9 H Potassium BUN Creatinine POC Glucose Calcium POC WB Ioniz Calcium Phosphorus Total Bilirubin Direct Bilirubin 0.4 H GGT AST 231 H ALT 144 H Alkaline Phosphatase 157 H Total Protein Albumin Amylase 155 H Lipase 596 H Hyaline Casts Urine Mucus Meds: Medications Acetaminophen (Acetaminophen 325 Mg Tablet) 650 mg PO Q6HP PRN; Protocol PRN Reason: Per Pain Protocol/Fever > 101 Clonidine HCl (Clonidine Hcl 0.1 Mg Tablet) 0.1 mg PO Q4HP PRN PRN Reason: [facility] Last Admin: 11/04/21 21:28 Dose: 0.1 mg Enoxaparin Sodium (Enoxaparin 40 Mg/0.4 Ml Syringe) 40 mg SQ DAILY [facility] Famotidine (Famotidine/Pf 20 Mg/2 Ml Vial) 20 mg IV Q12 [facility] Last Admin: 11/04/21 21:30 Dose: 20 mg Hydromorphone HCl (Hydromorphone 1 Mg/Ml Syringe) 1 mg IV Q2HP PRN; Protocol PRN Reason: Per Pain Protocol Last Admin: 11/04/21 12:52 Dose: 1 mg Thiamine HCl 100 mg/ Sodium (Chloride) 51 mls @ 50 mls/hr IV DAILY [facility] Last Infusion: 11/04/21 09:27 Dose: Infused Sodium Chloride (Sodium Chloride 0.9%) 1,000 mls @ 125 mls/hr IV .Q8H [facility] Last Admin: 11/04/21 22:15 Dose: 125 mls/hr Ketorolac Tromethamine (Ketorolac 30 Mg/Ml Vial) 30 mg IV Q6HP PRN; Protocol PRN Reason: Per Pain Protocol Stop: 11/05/21 17:41 Last Admin: 11/04/21 17:09 Dose: 30 mg Lorazepam (Lorazepam 2 Mg/Ml Vial) 0 mg IV Q4HP PRN; Protocol PRN Reason: Alcohol Withdrawal/Assess CIWA Last Admin: 11/04/21 17:09 Dose: 2 mg Nicotine (Nicotine 21 Mg Patch) 21 mg TOPICAL DAILY@1000 [facility] Last Admin: 11/04/21 09:34 Dose: 21 mg Ondansetron HCl (Ondansetron 4 Mg/2 Ml Vial) 4 mg IV Q6HP PRN PRN Reason: Nausea And Vomiting Oxycodone HCl (Oxycodone Hcl 5 Mg Tablet) 5 mg PO Q4HP PRN; Protocol PRN Reason: Per Pain Protocol Last Admin: 11/05/21 01:46 Dose: 5 mg Senna (Sennosides 1 Tablet) 2 tab PO HS [facility] Last Admin: 11/04/21 21:28 Dose: 2 tab Sodium Chloride (0.9 % Sodium Chloride 10 Ml Syringe) 10 ml IV Q8 [facility] Last Admin: 11/05/21 04:59 Dose: Not Given A/P Narrative A/P Narrative: A: *Acute pancreatitis: -Etiology likely alcohol related -Abnormal LFTs/alkaline phosphatase with normal bilirubin, no biliary abnormalities on CT to suggest gallstone pancreatitis -With fatty liver, hypertriglyceridemia also possible--> triglycerides normal *Alcohol abuse: -History of alcohol withdrawal in the past with described mild to moderate s ymptoms -No history of seizures or hallucinosis *Abnormal liver enzymes: 2/2 Fatty liver from likely alcohol use (less likely alcoholic hepatitis) *Tobacco abuse: *GERD: Plan: -Decrease IVF -Clear liquid diet to full liquid and to eventual low fat diet -Continue with pain and nausea control -Follow liver enzymes -Continue CIWA protocol, vitamins -Continue nicotine patch, Smoking cessation counseling >3 minutes -ppx: lovenox / home ppi Time Spent With Patient Time: Total time spent is greater than 50% in coordination of care (as documented) at patient's floor/unit and/or counseling patient: QUALITY VTE Deep Vein Thrombosis/Pulmonary Embolism Present on Admission: No
[2021-11-05] MEDS: 0.9 % SODIUM CHLORIDE 1,000 ML IV SCH (07:59)
[2021-11-05] MEDS: FAMOTIDINE/PF 20 MG/2 ML VIAL IV SCH (08:31)
--- NOTE | 2021-11-05 08:50 | Discharge Summary ---
Discharge Provider Provider IMPORTANT FOLLOW-UP INFORMATION FOR PCP: Patient information: Note initiated : 11/05/21 at 8:48 am Service Date, if different from initiated Date: [] Patient: Vee Blancas a 41 y/o F admitted on 11/03/21 for abd pain. Chief Complaint: [] Date of admission: 11/03/21 17:52 Discharge date: 11/05/21 Consults: 11/03/21 Consult to Physician [CONS] Stat Comment: Consulting Provider: Latricia Kohler Reason For Exam: Physician to Consult COURSE Hospital Course Hospital course: Interval history: Ms. Blancas is a 41 year old F with a history of alcohol use who presents the ED with abrupt onset of abdominal pain this afternoon. Patient was at work when she had onset of left upper abdominal pain which radiated to the back. It tended to wax and wane. Eventually someone from work brought her to the hospital. She had some associated indigestion, felt hot and sweaty but did not have a fever. She had no associated nausea or vomiting. She had little bit of shortness of breath, but that is chronic which she attributes to her cigarette smoking. She has a chronic cough which is unchanged. She reports mild similar symptoms in the past once or twice. No history of biliary disease, she still has her gallbladder. She drinks about 6 x 16 ounce beers on week nights when working, tends to drink throughout the day when she is not working. In the emergency department, evaluation revealed elevated lipase, elevated transaminases and alkaline phosphatase, CT imaging consistent with pancreatitis. In spite of several doses of pain medications, her pain was difficult to control in the ED and she is being admitted for further treatment of pancreatitis. 11/04: Pain a little improved, tolerating ice chips. Feels like she could try some clears today. Wanting to have a cigarette, confirmed that she is not allowed to go out to smoke while in the hospital. Reiterated that given her pancreatitis and evidence of fatty liver, it would be in her best interest to abstain from further alcohol. Also counseled on tobacco sensation, acknowledging it would be difficult to accomplish both at the same time. 11/05 Patient doing well. Tolerating diet. Desire to go home. Abdominal pain much improved. Stable for discharge. Educated on gradual increase in diet to low-fat. A: *Acute pancreatitis: -Etiology likely alcohol related *Alcohol abuse: -History of alcohol withdrawal in the past with described mild to moderate symptoms -No history of seizures or hallucinosis *Abnormal liver enzymes: 2/2 Fatty liver from likely alcohol use (less likely alcoholic hepatitis) *Tobacco abuse: *GERD: Plan: -advance diet to low fat diet Discharge diagnosis: Alcoholic pancreatitis alcohol abuse transaminitis Secondary discharge diagnosis: Bacot abuse GERD Time Spent with Patient Time attestation: Total time spent providing and/or coordinating discharge services: Time spent: Greater than 30 minutes EXAM Constitutional Vitals: Temp Pulse Resp BP Pulse Ox O2 Del Method O2 Flow Rate 98.1 F 89 20 131/94 95 0 11/05/21 04:00 11/05/21 04:00 11/05/21 04:00 11/05/21 04:00 11/05/21 04:00 11/05/21 04:00 11/04/21 00:31 Discharge Data Data Completed and Pending Labs on day of discharge: Labs from last 24 hours 11/05/21 11/05/21 04:58 04:57 WBC 7.5 RBC 4.05 Hgb 13.3 Hct 39.0 MCV 96.3 MCH 32.8 MCHC 34.1 RDW 13.2 Plt Count 198 MPV 11.2 H Immature Gran % (Auto) 0.3 Neut % (Auto) 62.1 Lymph % (Auto) 25.7 Stearns % (Auto) 9.7 Eos % (Auto) 1.9 Baso % (Auto) 0.3 Lymph # (Auto) 1.92 Stearns # (Auto) 0.72 Eos # (Auto) 0.14 Baso # (Auto) 0.02 Immature Gran # 0.02 Absolute Neutrophils 4.64 Sodium 136 Potassium 3.1 L Chloride 99 Carbon Dioxide 28 Anion Gap 9.0 BUN 2 L Creatinine 0.5 L GFR Calculation 120 Glucose 82 Uric Acid 4.2 Calcium 7.7 L Phosphorus 2.8 Magnesium 1.7 Total Bilirubin 1.1 H Direct Bilirubin 0.4 H GGT 432 H AST 49 H ALT 55 H Alkaline Phosphatase 102 Lactate Dehydrogenase 185 Total Protein 5.6 L Albumin 3.0 L Globulin 2.6 Albumin/Globulin Ratio 1.2 Triglycerides 134 Discharge Plan Patient/Caregiver Discharge Instructions Activity: increase activity as tolerated Diet: Low Fat Instructions: Pancreatitis (GEN), Low Fat Diet (GEN), Cigarette Smoking and Your Health (GEN), Abuse of Alcohol (GEN) Activity Restrictions/Additional Instructions: Gradually increase your diet to low fat, see the information included in your discharge packet. Increase activity as tolerated. Please fill out the new patient form to get the process started to assign a primary care physician for you. A one time appointment has been scheduled with Dr. Clementina Olivera for this hospital stay. Dr. Bo did not change any of your medications. This discharge packet is provided to you to help keep you informed about your care. We want to ensure you get everything you need when you go home. You will also be receiving a call from us in a few days to follow up with you and see how you are doing since your discharge. This gives us a chance to listen to any concerns you maybe experiencing since you were discharged or any additional needs you may have, as well as providing us feedback on your care experience. We strive to always provide excellent care and thank you for your feedback and for choosing [facility]. Stand Alone Forms: Work/Release Restrictions Prescriptions: Continued cetirizine [All Day Allergy (cetirizine)] 10 mg Tablet 10 mg PO QDAY ascorbic acid (vitamin C) 500 mg Tablet 500 mg PO QDAY omeprazole 20 mg Tablet,Delayed Release (Dr/Ec) 20 mg PO QDAY guaifenesin [Mucinex] 600 mg Tablet Extended Release 12hr 600 mg PO QDAY mecobalamin (vitamin B12) 1,000 mcg Tablet,Chewable 1,000 mcg PO QDAY Follow Up Plan Follow up with: Clementina Olivera ARNP [Nurse Practitioner] - 11/11/21 11:15 am (Please arrive 15 minutes early) Patient Disposition: Home, Self-Care Prognosis: Fair Overall status at discharge: patient is progressing back to baseline Discharge Orders: Discharge Order (Routine); Ordered 11/05/21 Ordered By: Eugene Bo QUALITY VTE Deep Vein Thrombosis/Pulmonary Embolism Present on Admission: No
[2021-11-05] MEDS: THIAMINE 100 MG in 0.9 % SODIUM CHLORIDE 50 ML IV SCH (08:56)
[2021-11-05] MEDS ORDERED: ENOXAPARIN 40 MG/0.4 ML SYRINGE SQ SCH (09:00)
[2021-11-05] MEDS: NICOTINE 21 MG PATCH TOPICAL SCH (10:38)
== END 2021-11-05 10:30 | disposition home or self-care (01) | DRG 440 ==
LOC: ED 13:20 → ICU 17:57
PROVIDERS: ADMIT Internal Medicine; ATTEND Internal Medicine